=== PATIENT | female | born 1965 | race Caucasian/White ===

== ENCOUNTER → 2020-07-28 14:53 | Outpatient (CLI) | payer OTHER, SELFPAY ==
[2020-07-29 20:03] LABS: COVID19 Sendout Not Detected (Not Detect)
== END ==
PROVIDERS: Visit Provider Physician Assistant
DX: Z11.59 Encounter for screening for other viral diseases (principal)
CPT/HCPCS: 87635

== ENCOUNTER 2020-07-31 06:18 | Day surgery (SDC) | payer OTHER, SELFPAY ==
[2020-07-30 15:04] VITALS: BMI 25.9
[2020-07-31] VITALS (9 sets, daily range): BP systolic 105–127; BP diastolic 67–76; PULSE 63–102; RESP 13–18; TEMP 36.1–37; O2SAT 92–100; BMI 25.1
[2020-07-31] MEDS: VANCOMYCIN 1,000 MG/200 ML PIGGYBACK 200 MG IV (07:21)
[2020-07-31] MEDS: LACTATED RINGERS 1,000 ML 100 ML IV (07:21)
--- NOTE | 2020-07-31 07:39 | P.OP_ITS ---
Operative Date/Time/Diagnoses Date of procedure: 07/31/20 Time of procedure: 07:39 Pre-op diagnosis: Right hallux abductovalgus with bunion, hammertoes 2,3,4,5 Post-op diagnosis: same Procedure & Clinicians Procedure: Right bunionectomy with first metatarsocuneiform fusion (82286) Proximal interphalangeal joint arthrodesis right toes 2,3,4 (01813 x3) Right fifth toe arthroplasty (40055) Same procedure as scheduled: Yes Indications: Painful bunion and hammertoes right foot. Conservative measures failed to alleviate her pain and she wished to have surgical intervention at this time. Surgeon: Jeanette Kennedy Click Yes if Unassisted: Yes Anesthesia Type: General Operative Notes Closure Type: primary Specimen(s): none sent Prosthetic devices, grafts, tissues, transplants, or devices: [place] plate, 4.0 cannulated screw, 2.7 locking and non-locking screws x4 [employer] DBM putty Applied: implant(s) Estimated Blood Loss (mL): 30 Blood products transfused: none Tourniquet time (min): 120 Procedure in detail: The patient was brought to the operating room and placed on the operating table in the supine position. The tourniquet was placed about the right thigh. Well padded appropriately aligned. After induction of general anesthesia the foot and ankle were prepped and draped in the usual aseptic manner. The tourniquet was inflated. Incision was made over the 1st metatarsal cuneiform joint extending to the 1st metatarsophalangeal joint. The incision was deepened through subcutaneous tissues being careful to identify and retract all vital neurovascular structures. All bleeders were cauterized and ligated as necessary. A capsulotomy was performed to the 1st MTPJ exposing the enlarged medial eminence. The saw was used to resect the medial eminence and then reduce the sharp edges of the bone. Attention was then directed to the 1st metatarsocuneiform joint which was entered. The joint was taken down and a saw was used to resect the base of the 1st metatarsal and the distal leading edge of the medial cuneiform. This was done at a slight angle on the medial cuneiform to allow for reduction of the intermetatarsal angle. The area was then able to be closed and the alignment was good. A k-wire was used to fenestrate either side of the former MC joint and currettage was also used. The area was irrigated with copious amounts normal sterile saline. With the aid of C-arm the guidewire was placed for temporary fixation through the 1st metatarsocuneiform joint. I was able to translate the 1st metatarsal slightly medially and plantarly to allow for better correction. It was noted to make sure that there was not a significant amount of plantar flexion distally. Next the using a guidewire and fluoroscopy, the lag screw was placed from distal to proximal across the joint. The fusion site showed good compression and closure. A plate was then chosen and placed with the corresponding screws in the normal AO technique. This was reviewed on C-arm and noted to be strong and in appropriate alignment. Once this was loaded it would appear that there did not need to be a distal metatarsal osteotomy or phalangeal osteotomy and instead capsule balancing techniques with the soft tissue were appropriate. Following irrigation of the area, a mixture of demineralized bone matrix and segments from her bone that had been resected were placed across an area dorsally at the first metatarsocuneform joint to aid in further bridging of the bone to fill in any small gaps in the contour of the dorsal bone. Attention was directed to the 2nd proximal interphalangeal joint where an incision was made dorsally over this. The incision was deepened through subcutaneous tissues being careful to identify and retract all vital neural and vascular structures. All bleeders were cauterized and ligated as necessary. Over the proximal interphalangeal joint and extensor tenotomy was performed, this was reflected distally and proximally and mobilized the underlying joint. A saw was used to resect the head of the proximal phalanx and the base of the intermediate phalanx and this was verified to line up appropriately. The area was irrigated with copious amounts of normal sterile saline. A 0.062 K-wire was placed in the base of the intermediate phalanx and driven out the tip of the toe this was then retrograded back into the proximal phalanx and with the aid of C-a rm also placed across the head and neck of the metatarsal. The foot was loaded and alignment was good. This K-wire was then bent at the tip and excess wire was removed. This was capped with a protector. The same procedure was performed to the 3rd toe and on the 4th toe, and the 4th toe instead of using of the 0.062 K-wire, a 0.045 K-wire was used. The same procedure was performed to the 5th toe however a K-wire was not used. The area was irrigated with copious amounts of normal sterile saline and the tourniquet was deflated. A prompt hyperemic response was seen to the foot. The medial 1st MTP capsule was resected and closed down and alignment with Vicryl. Extensor tendon was repaired to the lesser toes using 4 0 Vicryl. Deep and subcutaneous closure was closed performed with Vicryl and nylon to the skin. The foot was dressed with a lightly compressive sterile dressing and splint in alignment. She was then placed in a postoperative boot and transferred to PACU with vital signs stable. Complications: none Post-operative Condition: stable Disposition: PACU Plan for aftercare: Following a period of postoperative monitoring, the patient be discharged home on written and oral postoperative instructions including keeping the dressing dry and intact, no ambulation on the foot, icing and elevating the foot when seated home. DVT prevention techniques have been reviewed. For the 1st postoperative visit the dressing will be changed and close to the 3rd postoperative week we will likely remove the sutures. Close to the 4th postoperative week we will get her 1st x-rays.
--- NOTE | 2020-07-31 07:39 | PM.PREOP ---
Pre-operative Note COVID-19 COVID-19 status: Negative Result date/Date tested (Pos, Neg/Pending): 07/30/20 Interval Note History & Physical reviewed/Exam performed by Physician: Yes Changes to H&P: No
--- NOTE | 2020-07-31 08:42 | SUR.OPER ---
Supine on padded OR bed, head on pillow, arms secured on padded arm boards at <90 degrees abduction, legs uncrossed, safety belt at thigh, tape over blanket over lower legs.
--- NOTE | 2020-07-31 08:43 | SUR.OPER ---
Supine on padded OR bed, head on pillow, arms secured on padded arm boards at <90 degrees abduction, legs uncrossed, safety belt at thigh. SCD on and activated left leg.
[2020-07-31] MEDS: BUPIVACAINE 0.5% (PF) VIAL 30 ML INJ (09:27)
--- NOTE | 2020-07-31 11:54 | SUR.OPER ---
Supine on padded OR bed, head on pillow, arms secured on padded arm boards at <90 degrees abduction, legs uncrossed, safety belt at thigh, scd left leg activated
--- NOTE | 2020-07-31 12:04 | SUR.PHASEI ---
Report given to Flora
[2020-07-31] MEDS: OXYCODONE/ACETAMINOPHEN 5/325 TABLET 1 TAB PO (12:08)
[2020-07-31] MEDS: fentaNYL 100 MCG/2 ML INJ IV ×2 (12:16→12:20)
--- NOTE | 2020-07-31 12:44 | SUR.PHASEI ---
Assumed care from Flora, RN, pt rates pain 4/5 and pt states she is comfortable. Awaiting 30 min transfer rule, pt stable , Dr. Kennedy adjusted surgical boot t o R foot while pt in PACU.
--- NOTE | 2020-07-31 13:01 | SUR.PHASEII ---
rajiv rodriguez wishes to go over d/c instructions again with him.
--- NOTE | 2020-07-31 13:19 | SUR.PHASEII ---
here d/c instructions discussed, both stated an understanding, pt left when ready and left in stable condition.
--- NOTE | 2020-07-31 13:25 | SUR.PHASEII ---
Pt reminded to wear cpap with naps and sleep today, pt left in stable condition.
== END 2020-07-31 13:23 | disposition home or self-care (01) ==
PROVIDERS: PCP Family Medicine; Referring Provider Podiatrist; Visit Provider Podiatrist
PROC: 0QBN0ZZ Excision of Right Metatarsal, Open Approach (ICD-10-PCS; CPT 28292; principal; 2020-07-31 07:45)
PROC: (CPT 28285; 2020-07-31 07:45)
PROC: (CPT 26535; 2020-07-31 07:45)
DX: M20.41 Other hammer toe(s) (acquired), right foot (principal); M20.11 Hallux valgus (acquired), right foot; L85.1 Acquired keratosis [keratoderma] palmaris et plantaris; G47.33 Obstructive sleep apnea (adult) (pediatric)
CPT/HCPCS: 28297; 28285 ×4; J3010